=== PATIENT | female | born 1980 | race Caucasian/White ===

== ENCOUNTER 2017-04-04 19:40 | Emergency (ER) | payer OTHER ==
[2017-04-04] MEDS ORDERED: HYDROcodone/APAP 5-325MG 1 EACH TAB PO STA (20:24)
[2017-04-04 20:54] VITALS: BP 129/83; PULSE 71; RESP 20
--- NOTE | 2017-04-04 20:56 | XR ---
EXAMINATION TYPE: XR ribs RT w pa chest xray DATE OF EXAM: 04/04/2017 COMPARISON: 01/21/2016 HISTORY: Rib pain TECHNIQUE: 5 views FINDINGS: Heart and mediastinum are normal. Lungs are clear. There is no sign of pleural effusion or pneumothorax. The right ribs appear intact. IMPRESSION: Negative right rib exam. Normal chest.
--- NOTE | 2017-04-04 20:57 | XR ---
EXAMINATION TYPE: XR shoulder complete RT DATE OF EXAM: 04/04/2017 COMPARISON: NONE HISTORY: Shoulder pain TECHNIQUE: 3 views FINDINGS: I see no fracture nor dislocation. Glenohumeral joint is anatomic. There are small subcutan eous calcifications lateral to the humeral head. IMPRESSION: No fracture. Small subcutaneous calcifications of uncertain significance. These could als o be tiny foreign bodies.
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
[2017-04-04 21:47] VITALS: TEMP 98.3
== END 2017-04-04 21:47 | disposition home or self-care (01) ==
LOC: EC 19:40
DX: M54.6 Pain in thoracic spine (principal); M25.511 Pain in right shoulder; J45.909 Unspecified asthma, uncomplicated; J44.9 Chronic obstructive pulmonary disease, unspecified; K21.9 Gastro-esophageal reflux disease without esophagitis; Z86.69 Personal history of other diseases of the nervous system and sense organs; F17.200 Nicotine dependence, unspecified, uncomplicated; Z79.51 Long term (current) use of inhaled steroids; Z79.899 Other long term (current) drug therapy; Z88.1 Allergy status to other antibiotic agents; Z88.8 Allergy status to other drugs, medicaments and biological substances; Z88.5 Allergy status to narcotic agent; W14.XXXA Fall from tree, initial encounter
CPT/HCPCS: 99283

== ENCOUNTER 2017-10-14 08:59 | Day surgery (SDC) | payer OTHER ==
[2017-10-12 14:59] VITALS: BMI 23.6
[~2017-10-14 08:59] MED LIST: LACTATED RINGERS 1,000 ML IV SCH; LIDOCAINE 1% 20 ML VIAL (10MG/ML) FOR IV START INTRADERMA PRN
[2017-10-14 09:22] VITALS: RESP 16; TEMP 98.2
[2017-10-14] MEDS ORDERED: PROPOFOL 10 MG/ML 20 ML VIAL IV ONE (09:30)
--- NOTE | 2017-10-14 09:43 | P.PCN ---
Date of Procedure: 10/14/17 Procedure(s) Performed: BRIEF HISTORY: Patient is a 36-year-old, pleasant, white female, scheduled for an upper endoscopy as part of evaluation of worsening epigastric pain for the last few months duration. She has long-standing history of GERD and is being maintained on Prilosec 20 mg twice daily, Zantac at bedtime and still remains symptomatic. She is scheduled for an upper endoscopy revealed conjugated reflux disease. PROCEDURE PERFORMED: Esophagogastroduodenoscopy with biopsy. PREOPERATIVE DIAGNOSIS: Severe epigastric pain/long-standing history of GERD. IV sedation per anesthesia. PROCEDURE: After informed consent was obtained, the patient was brought into the endoscopy unit. IV sedation was administered by Anesthesia under continuous monitoring. Initially the Olympus GIF-140 video endoscope was inserted into the mouth. Esophagus intubated without any difficulty. It was gradually advanced into the stomach and duodenum and carefully examined. The bulb and the second part of the duodenum had mild duodenitis and biopsies were done from this area. The scope at this time was withdrawn to the stomach, adequately insufflated with air, and upon careful examination, mucosa of the antrum, had scattered erosions and biopsies were done from the antrum to evaluate for H. pylori infection. The body, cardia and the fundus appeared normal. The scope was then withdrawn into the esophagus. Moderate size hiatal hernia noted. The GE junction was located at 33 cm from the incisors. The esophagus appeared normal. There were no erosions or ulcerations seen and the patient tolerated the procedure well. IMPRESSION: 1. Small to moderate size hiatal hernia. 2. Mild antral gastritis and duodenitis. RECOMMENDATIONS: The findings of this examination were discussed with the patient as well as a family. She was advised to follow with the biopsy result. In the meantime she will continue with Prilosec and Zantac and follow antireflux measures. She'll be seen back in office in 2-3 weeks.
[2017-10-14 10:06] VITALS: BP 110/68; PULSE 87
== END 2017-10-14 10:28 | disposition home or self-care (01) ==
LOC: ORWHC2ENDO 08:59
PROVIDERS: ATTEND Internal Medicine Gastroenterology
DX: K29.50 Unspecified chronic gastritis without bleeding (principal); K25.9 Gastric ulcer, unspecified as acute or chronic, without hemorrhage or perforation; K29.80 Duodenitis without bleeding; K44.9 Diaphragmatic hernia without obstruction or gangrene; K21.9 Gastro-esophageal reflux disease without esophagitis; J44.9 Chronic obstructive pulmonary disease, unspecified; R56.9 Unspecified convulsions; F17.200 Nicotine dependence, unspecified, uncomplicated; Z79.899 Other long term (current) drug therapy; Z79.82 Long term (current) use of aspirin; Z79.51 Long term (current) use of inhaled steroids; Z91.09 Other allergy status, other than to drugs and biological substances
CPT/HCPCS: 81025; 88305; 43239; J2704